=== PATIENT | male | born 1960 ===

== ENCOUNTER → 2018-12-25 18:09 | Outpatient (CLI) | payer OTHER | END | disposition home or self-care (01) | LOC: LAB 18:09 | DX: R97.20 Elevated prostate specific antigen [PSA] (principal) ==

== ENCOUNTER 2019-01-22 07:43 | Outpatient (CLI) | payer OTHER | END 2019-01-22 07:52 | disposition home or self-care (01) | LOC: SONOGRAMA 07:43 | DX: R97.20 Elevated prostate specific antigen [PSA] (principal) ==

== ENCOUNTER 2025-05-25 11:58 | Outpatient (CLI) | payer OTHER | END 2025-05-25 12:03 | disposition home or self-care (01) | LOC: SONOGRAMA 11:58 | DX: M79.605 Pain in left leg (principal) ==